=== PATIENT | female | born 1940 | race Caucasian/White ===

== ENCOUNTER 2017-03-25 20:45 | Emergency (ER) | payer MEDICARE ==
--- NOTE | 2017-03-25 20:48 | UC ---
Minor Trauma HPI - HPI Summary HPI Summary: 76 YEAR OLD FEMALE PRESENTS WITH COMPLAINS OF SEVERE HEAD INJURY POST FALL. - History of Current Complaint Stated Complaint: FACE/HEAD INJURY-FALL Time Seen by Provider: 03/25/17 20:47 Hx Obtained From: Patient Onset/Duration: Sudden Onset, Lasting Hours Severity Initially: Moderate Severity Currently: Moderate Pain Scale Used: 0-10 Numeric - 6 Mechanism Of Injury: Blunt Trauma Aggravating Factor(s): Nothing Alleviating Factor(s): Nothing Associated Signs And Symptoms: Positive: Ecchymosis, Swelling - Allergies/Home Medications Allergies/Adverse Reactions: Allergies Allergy/AdvReac Type Severity Reaction Status Date / Time Adhesive Tape Allergy ITCHY, Verified 03/25/17 20:55 LEFT ON TOO LONG BLISTERS Morphine Allergy Nausea Verified 03/25/17 20:55 Home Medications: Home Medications Calcium Polycarbophil TAB* [Fibercon TAB*] 625 mg PO DAILY 03/25/17 [History Confirmed 03/25/17] Hydrocodone-Acetaminophen [Hydrocodone/Acetaminophen 10-325 mg] 1 tab PO Q6H PRN 03/25/17 [History Confirmed 03/25/17] PMH/Surg Hx/FS Hx/Imm Hx Previously Healthy: Yes - Surgical History Surgical History: Yes Surgery Procedure, Year, and Place: TOTAL HYSTERECTOMY/BILATERAL KNEE REPLACEMENTS/ANCHORS IN EVA FROM DENTURES/CERVICAL FUSION/CARPAL TUNNEL REPAIR RT HAND/ BONE REMOVAL BASE OF THUMB/ PARTIAL COLECTOMY/T&A - Family History Known Family History: Positive: None - Social History Alcohol Use: None Substance Use Type: None - Immunization History Most Recent Influenza Vaccination: current Review of Systems Constitutional: Negative Skin: Bruising, Other - LEFT SIDED HEAD INJURY Eyes: Negative ENT: Negative Respiratory: Negative Cardiovascular: Negative Gastrointestinal: Negative Genitourinary: Negative Motor: Negative Neurovascular: Negative Musculoskeletal: Negative Neurological: Negative Psychological: Negative All Other Systems Reviewed And Are Negative: Yes Physical Exam Triage Information Reviewed: Yes Eye Exam: Normal ENT Exam: Normal Dental Exam: Normal Neck exam: Normal Neck: Positive: 1 Respiratory Exam: Normal Cardiovascular Exam: Normal Abdominal Exam: Normal Musculoskeletal Exam: Normal Neurological Exam: Normal Psychological Exam: Normal Skin: Positive: Other - LEFT SIDED HEAD INJURY Minor Trauma Course/Dx - Differential Dx/Diagnosis Provider Diagnoses: LEFT SIDED HEAD INJURY/HEMATOMA Discharge - Discharge Plan Condition: Stable Disposition: HOME Patient Education Materials: Concussion (ED), Head Injury (ED) Referrals: Mark Jacob MD [Primary Care Provider] - Additional Instructions: patient suggested to go to er to rule out acute head bleed.
== END 2017-03-25 21:12 | disposition home or self-care (01) ==
LOC: UCCORT 20:45
DX: S09.90XA Unspecified injury of head, initial encounter (principal); W19.XXXA Unspecified fall, initial encounter
CPT/HCPCS: 99202; G0463

== ENCOUNTER 2017-08-15 19:59 | Emergency (ER) | payer MEDICARE, MEDICAID ==
[2017-08-15 21:37] VITALS: BP 135/101
--- NOTE | 2017-08-15 21:44 | UC ---
Ear Complaint HPI - HPI Summary HPI Summary: Pt presents with progressive left ear pain x 3 days. Pt states feels full and hearing is muffled. Pt states intermittently sharp pain in ear. No drainage. No relief with Aleve. Pt has [place] at home with mild improvement - last dose of analges 3pm. No wyatt, vision changes. No jaw or dental pain. No trauma. No h/o similar. No fever, chills rash. Cold outside ear intensifies discomfort Pt's medications reviewed this visit - History of Current Complaint Chief Complaint: UCEar Stated Complaint: EAR PAIN Time Seen by Provider: 08/15/17 21:43 Hx Obtained From: Patient, Family/Supervisor Cell Efficiency ?: No Onset/Duration: Gradual Onset Severity Initially: Moderate Severity Currently: Moderate Pain Intensity: 8 Pain Scale Used: 0-10 Numeric Aggravating Factors: Cold Alleviating Factors: OTC Meds, Other (Noted In Comments) - narcotic RX Associated Signs/Symptoms: Positive: Hearing Loss. Negative: Discharge, Foreign Body Sensation - Allergies/Home Medications Allergies/Adverse Reactions: Allergies Allergy/AdvReac Type Severity Reaction Status Date / Time Adhesive Tape Allergy ITCHY, Verified 08/15/17 21:37 LEFT ON TOO LONG BLISTERS Morphine AdvReac Nausea Verified 08/15/17 21:37 PMH/Surg Hx/FS Hx/Imm Hx Previously Healthy: Yes Endocrine History: Dyslipidemia - Surgical History Surgical History: Yes Surgery Procedure, Year, and Place: TOTAL HYSTERECTOMY/BILATERAL KNEE REPLACEMENTS/ANCHORS IN EVA FROM DENTURES/CERVICAL FUSION/CARPAL TUNNEL REPAIR RT HAND/ BONE REMOVAL BASE OF THUMB/ PARTIAL COLECTOMY/T&A - Family History Known Family History: Positive: None - Social History Occupation: Retired Lives: With Family Alcohol Use: None Substance Use Type: None Smoking Status (MU): Never Smoked Tobacco - Immunization History Most Recent Influenza Vaccination: current Review of Systems Constitutional: Negative Skin: Negative Eyes: Negative ENT: Ear Ache Respiratory: Negative Cardiovascular: Negative All Other Systems Reviewed And Are Negative: Yes Physical Exam Triage Information Reviewed: Yes Appearance: Well-Nourished, Pain Distress - Pt holding left ear discomfort Vital Signs: Initial Vital Signs Temp 97.8 F 08/15/17 21:31 Pulse 72 08/15/17 21:31 Resp 16 08/15/17 21:31 BP 135/101 08/15/17 21:31 Pulse Ox 97 01/22/18 21:31 Eye Exam: Normal Eyes: Positive: Conjunctiva Clear. Negative: Conjunctiva Inflamed ENT: Positive: Pharynx normal, Other - right canal and TM wnl Left - partially visualized TM - no flud no erythma canal inflammed with erythema no drainage , no odor No rash no mastoid pain. Negative: Nasal congestion, Nasal drainage Dental Exam: Normal Dental: Positive: Other: - no TMJ pain Neck exam: Normal Neck: Positive: Supple, Nontender Respiratory Exam: Normal Respiratory: Positive: Chest non-tender, Lungs clear, Normal breath sounds, No respiratory distress, No accessory muscle use Cardiovascular Exam: Normal Cardiovascular: Positive: RRR, No Murmur, Pulses Normal, Other: - no temporal artery discomfort Abdominal Exam: Normal Abdomen Description: Positive: Nontender, No Organomegaly, Soft Bowel Sounds: Positive: Present Musculoskeletal Exam: Normal Musculoskeletal: Positive: Strength Intact Neurological Exam: Normal Psychological Exam: Normal Psychological: Positive: Normal Response To Family Skin Exam: Normal Ear Complaint Course/Dx - Course Course Of Treatment: Pt with progressive left ear pain. On exam canal with lester and erythema no drainage. No mastoid, TMJ, temporal artery pain. No rash. d/w pt and at length. analgesia. PCP recheck. return precautions. Pt noted to have elevated BP - advised PCP f/u - Differential Dx/Diagnosis Provider Diagnoses: left otitis externa Discharge - Discharge Plan Condition: Stable Disposition: HOME Patient Education Materials: Otitis Externa (ED) Referrals: Mark Jacob MD [Primary Care Provider] - Additional Instructions: - Okay to alternate ibuprofen (Advil, MOtrin) 600mg and Tylenol product ( Tylenol or hydrocodone) every 3hours for pain - apply ear drops to left ear, 3 times a day for 7 days - Contact your doctor to schedule a follow-up appointment this week. contact your doctor or go to the emergency department with questions or concerns
[2017-08-15] MEDS ORDERED: Neomyc/Polym/HC 1% OTIC SUSP* **OTIC LEFT EAR ONE (21:53)
[2017-08-15] MEDS ORDERED: Ibuprofen TAB* 600 MG PO ONE (21:53)
== END 2017-08-15 22:04 | disposition home or self-care (01) ==
LOC: UCCORT 19:59
DX: H60.92 Unspecified otitis externa, left ear (principal); E78.5 Hyperlipidemia, unspecified; Z90.710 Acquired absence of both cervix and uterus; Z96.653 Presence of artificial knee joint, bilateral; Z90.89 Acquired absence of other organs; Z88.5 Allergy status to narcotic agent; Z91.048 Other nonmedicinal substance allergy status
CPT/HCPCS: 99212; A9270-GY; G0463